=== PATIENT | female | born 1950 | race Caucasian/White ===

== ENCOUNTER → 2017-01-26 | Outpatient (CLI) | payer MEDICARE, BC ==
[~2017-01-26] MED LIST: AMPHETAMINE SAL10 MG PO; ASPIR 8181 M1 PO; BUPROPION HCL100 MG; BUPROPION HCL100 MG PO; CARDIZEM30 MG PO; CYCLOBENZAPRINE5 MG PO; CYMBALTA60 MG PO; IBUPROFEN400 MG PO; LIDODERM 5% P1 PATCH TD; MORPHINE SULFAT15 M1 PO; MS CONTIN,ORAMO15 M1 PO; OSCIMIN0.125 MG PO; PERCOCET 5/31 TABLET PO; RESTORIL30 MG PO; Restoril PO; SAVELLA50 MG PO; SILENOR6 MG PO; TEMAZEPAM30 MG; ULTRAM50 MG PO
== END | disposition home or self-care (01) ==
LOC: CDC 11:50
DX: Z01.810 Encounter for preprocedural cardiovascular examination (principal)
CPT/HCPCS: 93000